=== PATIENT | female | born 1960 | race African-American/Black ===

== ENCOUNTER → 2018-11-29 13:58 | Outpatient (CLI) | payer MEDICARE | END | disposition home or self-care (01) | LOC: D.CT 11-19 14:30 | PROVIDERS: ATTEND Registered Nurse Nephrology | DX: I73.9 Peripheral vascular disease, unspecified (principal) ==

== ENCOUNTER 2020-03-21 10:33 | Outpatient (CLI) | payer MEDICARE ==
[~2020-03-21] VITALS: Ht 160 cm; Wt 60.0 kg
[2020-03-21 11:05] LABS: BASOPHILS 0.3 % (0-2); EOSINOPHILS 7.1 % (0-7); HEMATOCRIT 31.5 % (36.0-48.0); HEMOGLOBIN 10.3 g/dL (12-16); IMMATURE GRANULOCYTES 0.1 % (0-5); LYMPHOCYTES 11.8 % (15-50); MCH 33.6 pg (26.0-34.0); MCHC 32.7 g/dL (31.0-37.0); MCV 102.6 fL (80.0-100.0); MEAN PLATELET VOLUME 9.2 fL (7.4-10.4); MONOCYTES 8.6 % (2-11); NEUTROPHILS 72.1 % (40-80); PLATELET COUNT 201 10x3/uL (130-400); RBC 3.07 10x6/uL (4.00-5.40); RDW 17.5 % (11.5-14.5); WBC 6.8 10x3/uL (4.8-10.8)
[2020-03-21 11:22] LABS: % SATURATION 22 % (15-55); IRON 59 ug/dl (35-150); TOTAL IRON BIND CAPACITY 261 ug/dl (260-445); UNSAT IRON BIND CAPACITY 202 ug/dl (150-375)
[2020-03-21 11:33] LABS: APTT 32.2 SECONDS (22.8-39.4); INR 1.21 (0.85-1.17); PROTIME 15.2 SECONDS (11.6-15.0)
[2020-03-21] MEDS ORDERED: DILTIAZEM 24HR120 M3 PO (11:33)
[2020-03-21] MEDS ORDERED: HYDROCODON-ACE1 EA10 PO (11:34)
[2020-03-21] MEDS ORDERED: ELIQUIS2.5 MG PO (11:34)
[2020-03-21] MEDS ORDERED: GABAPENTIN100 MG PO (11:35)
[2020-03-21] MEDS ORDERED: OMEPRAZOLE40 MG PO (11:35)
[2020-03-21] MEDS ORDERED: RENAGEL800 MG PO (11:36)
[2020-03-21] MEDS ORDERED: RENA-VITE TABL0.8 MG PO (11:36)
[2020-03-21] MEDS ORDERED: HYDROXYZINE HCL10 MG PO (11:38)
[2020-03-21 11:40] LABS: ALBUMIN 3.9 g/dL (3.4-5.0); ALKALINE PHOSPHATASE 56 U/L (30-120); ALT (SGPT) 16 U/L (10-68); BILIRUBIN - INDIRECT 0.35 mg/dL (0.00-1.00); BILIRUBIN - TOTAL 0.65 mg/dL (0.2-1.3); CALC OSMOLALITY 279 mosm/kg (275-300); CALCIUM 8.6 mg/dL (8.5-10.1); CARBON DIOXIDE 30.6 mmol/L (21.0-32.0); CHLORIDE - SERUM 101 mmol/L (98-107); CREATININE - SERUM 7.2 mg/dL (0.6-1.3); FERRITIN 450 ng/mL (3-244); GAMMA GT 35 U/L (5-85); GLUCOSE 89 mg/dL (74-106); POTASSIUM - SERUM 3.9 mmol/L (3.5-5.1); PROTEIN - SERUM 7.5 g/dL (6.4-8.2); SODIUM 140 mmol/L (136-145); UREA NITROGEN 18 mg/dL (7-18); eGFR NON AFRICAN AMERICAN 6 mL/min (90-120)
[2020-03-21 11:46] VITALS: BP 101/60; Ht 160 cm; Wt 60.0 kg
--- NOTE | 2020-03-21 13:40 | NUR ---
1333-REC'D FROM [facility]. A&OX4, DENIES PAIN TO INCISIONAL SITE, DRESSING CDI. VSS. DENIES N/V.
--- NOTE | 2020-03-21 14:19 | NUR ---
1400 REPORT FROM MACHO BASS RN.
[2020-03-22 07:15] LABS: HAPTOGLOBIN 149 mg/dL (33-346)
[2020-03-22 12:10] LABS: ALPHA FETOPROTEIN -(TUMOR MRK) 13.4 ng/mL (0.0-8.3)
[2020-03-22 14:10] LABS: ANA REFLEX - DIRECT Negative (Negative)
[2020-03-23 18:30] LABS: SMOOTH MUSCLE ABS (ACTIN) 24 Units (0-19)
== END 2020-03-21 16:30 | disposition home or self-care (01) ==
LOC: D.SP 10:33 → D.CT 13:00 → D.SP 16:30
PROVIDERS: General Practice; ATTEND Internal Medicine Gastroenterology
DX: K74.60 Unspecified cirrhosis of liver (principal); R18.8 Other ascites; J44.9 Chronic obstructive pulmonary disease, unspecified; I50.9 Heart failure, unspecified